=== PATIENT | female | born 1985 | race African-American/Black ===

== ENCOUNTER 2017-04-23 14:10 | Emergency (ER) | payer SELFPAY ==
[2017-04-23 14:16] VITALS: BMI 44.2
[2017-04-23] MEDS ORDERED: ONDANSETRON 4 MG/2 ML VIAL IVPB ONE (16:51)
[2017-04-23] MEDS ORDERED: PANTOPRAZOLE SODIUM 40 MG in SODIUM CHLORIDE 100 ML IVPB ONE (16:51)
[2017-04-23] MEDS ORDERED: SODIUM CHLORIDE 1,000 ML IV STA (16:51)
[2017-04-23] MEDS ORDERED: PANTOPRAZOLE SODIUM 100 ML IVPB ONE (17:02)
[2017-04-23] MEDS ORDERED: ONDANSETRON 4 MG/2 ML VIAL ONE (17:02)
[2017-04-23 18:00] LABS: URINE APPEARANCE CLEAR; URINE BILIRUBIN NEGATIVE (NEGATIVE); URINE BLOOD NEGATIVE (NEGATIVE); URINE COLOR LTYELLOW; URINE GLUCOSE (UA) NEGATIVE (NEGATIVE); URINE KETONE NEGATIVE (NEGATIVE); URINE LEUK ESTERASE NEGATIVE (NEGATIVE); URINE NITRITE NEGATIVE (NEGATIVE); URINE PROTEIN NEGATIVE (NEGATIVE); URINE UROBILINOGEN NEGATIVE mg/dL (0.2-1.0)
[2017-04-23 18:06] LABS: INR 1.15 (0.82-1.09); PROTHROMBIN TIME (PATIENT) 12.7 SEC (9.98-11.88)
--- NOTE | 2017-04-23 18:07 | PDOC ---
History of Present Illness - General Chief Complaint: Pain Stated Complaint: PAIN Time Seen by Provider: 04/23/17 16:40 - History of Present Illness Initial Comments: 04/23/17 18:02 "The patient is a 31 year old female, with no significant past medical history, who presents to the emergency room with 3 days of progressively worsening diffuse abdominal pain. She states that the pain is constant, exacerbated when sitting and standing, and does not radiate to the back or flanks. The patient cannot sleep at night due to the discomfort. She reports some nausea. She notes that she feels some pressure upon urination, but denies dysuria and hematuria. Denies vaginal discharge/bleeding. Denies vomiting, diarrhea, constipation. Denies hx of gallstones, kidney stones. Denies dysuria, hematuria, flank pain. Denies chest pain. Allergies: NKDA, egg PCP: does not remember the name but located at [facility] " Past History - Past Medical History Allergies/Adverse Reactions: Allergies Allergy/AdvReac Type Severity Reaction Status Date / Time egg Allergy Itching Verified 04/23/17 14:16 Home Medications: Ambulatory Orders Dicyclomine HCl [Bentyl -] 20 mg PO BID PRN #14 tablet 04/23/17 Other medical history: NONE - Suicide/Smoking/Psychosocial Hx Smoking History: Current every day smoker Number of Cigarettes Smoked Daily: 3 Information on smoking cessation initiated: Yes 'Breaking Loose' booklet given: 04/23/17 Hx Alcohol Use: Yes (SOCIAL) Drug/Substance Use Hx: No Review of Systems - Review of Systems Comments:: 04/23/17 18:03 "GENERAL/CONSTITUTIONAL: No fever or chills. No weakness. HEAD, EYES, EARS, NOSE AND THROAT: No change in vision. No ear pain or discharge. No sore throat. CARDIOVASCULAR: No chest pain or shortness of breath. RESPIRATORY: No cough, wheezing, or hemoptysis. GASTROINTESTINAL: +diffuse abdominal pain, +nausea. No vomiting, diarrhea or constipation. GENITOURINARY: No dysuria, frequency, or change in urination. MUSCULOSKELETAL: No joint or muscle swelling or pain. No neck or back pain. SKIN: No rash NEUROLOGIC: No headache, vertigo, loss of consciousness, or change in strength/ sensation. ENDOCRINE: No increased thirst. No abnormal weight change. HEMATOLOGIC/LYMPHATIC: No anemia, easy bleeding, or history of blood clots. ALLERGIC/IMMUNOLOGIC: No hives or skin allergy." *Physical Exam - Vital Signs Last Vital Signs Temp Pulse Resp BP Pulse Ox 99.0 F 107 H 20 162/78 97 04/23/17 14:13 04/23/17 14:13 04/23/17 14:13 04/23/17 14:13 04/23/17 14:13 - Physical Exam Comments: 04/23/17 18:03 "GENERAL: Awake, alert, and fully oriented, in no acute distress HEAD: No signs of trauma EYES: PERRLA, EOMI, sclera anicteric, conjunctiva clear ENT: Auricles normal inspection, hearing grossly normal, nares patent, oropharynx clear without exudates. Moist mucosa NECK: Nontender, no stepoffs, Normal ROM, supple, no lymphadenopathy, JVD, or masses LUNGS: Breath sounds equal, clear to auscultation bilaterally. No wheezes, and no crackles HEART: Regular rate and rhythm, normal S1 and S2, no murmurs, rubs or gallops ABDOMEN: +obese, mild diffuse tenderness to palpation. Soft, normoactive bowel sounds. No guarding, no rebound. No masses. BACK: No CVA tenderness. EXTREMITIES: Normal range of motion, no edema. No clubbing or cyanosis. No cords, erythema, or tenderness NEUROLOGICAL: Cranial nerves II through XII intact. 5/5 strength and sensation in all extremities, Normal speech, normal gait SKIN: Warm, Dry, normal turgor, no rashes or lesions noted." ED Treatment Course - LABORATORY CBC & Chemistry Diagram: 04/23/17 20:31 04/23/17 17:30 - RADIOLOGY Radiology Studies Ordered: Category Date Time Status ABDOMEN & PELVIS CT WITH CONTR [CT] Stat CT Scan 04/23/17 16:50 Ordered ABDOMEN US -LIMITED [US] Stat Ultrasound 04/23/17 16:50 Ordered - Medications Given in the ED: ED Medications Discontinued Medications Generic Name Dose Route Start Last Admin Trade Name Freq PRN Reason Stop Dose Admin Pantoprazole Sodium 40 mg/ 100 mls @ 200 mls/hr 04/23/17 16:51 04/23/17 17:36 Sodium Chloride IVPB 04/23/17 17:20 200 mls/hr ONCE ONE Administration Sodium Chloride 1,000 mls @ 1,000 mls/hr 04/23/17 16:51 04/23/17 17:53 Normal Saline - IV 04/23/17 17:50 1,000 mls/hr ASDIR STA Administration Ondansetron HCl 4 mg 04/23/17 16:51 04/23/17 17:36 Zofran Injection IVPB 04/23/17 16:52 4 mg ONCE ONE Administration Medical Decision Making - Medical Decision Making 04/23/17 18:04 31 F with diffuse abdominal pain x 3 days. Vitals stable, no fevers. Etiology unclear at this time as pt endorses pain in all quadrants. However, abdominal exam notable only for mild diffuse tenderness. - Labs - RUQ sono - CTAP 7PM - pt signed out to night team, dispo pending US and CT scan *DC/Admit/Observation/Transfer Diagnosis at time of Disposition: Abdominal pain Qualifiers: Abdominal location: generalized Qualified Code(s): R10.84 - Generalized abdominal pain - Discharge Dispostion Disposition: HOME Condition at time of disposition: Stable - Prescriptions Prescriptions: Dicyclomine HCl [Bentyl -] 20 mg PO BID PRN #14 tablet PRN Reason: Pain - Referrals Referrals: Alfred Pepe MD [Staff Physician] - - Patient Instructions Printed Discharge Instructions: DI for Abdominal Pain-Adult Additional Instructions: Thank you for coming in to the ER today Please take medications as prescribed for pain Please follow up with your primary care physician in 2 -3 days Please follow up with GI You should return to the ER for any new symptoms, increased pain, any other concerns or complaints Print Language: [place] - Post Discharge Activity Forms/Work/School Notes: Back to Work
[2017-04-23 18:09] LABS: ACTIVATED PTT 27.5 SECONDS (26.9-34.4)
[2017-04-23 18:17] LABS: ALBUMIN 3.5 g/dl (3.4-5.0); ALK PHOS 78 U/L (45-117); ANION GAP 9 (8-16); BILIRUBIN,TOTAL 0.4 mg/dL (0.2-1.0); CO2 25 mmol/L (21-32); CREATININE 0.8 mg/dL (0.55-1.02); GLUCOSE,RANDOM 95 mg/dL (74-106); SGPT/ALT 20 U/L (12-78); TOT PROT 6.8 g/dl (6.4-8.2)
[2017-04-23 18:21] LABS: SGOT/AST 14 U/L (15-37)
--- NOTE | 2017-04-23 19:34 | PDOC ---
*Physical Exam - Vital Signs Last Vital Signs Temp Pulse Resp BP Pulse Ox 99.0 F 107 H 20 162/78 100 04/23/17 14:13 04/23/17 14:13 04/23/17 14:13 04/23/17 14:13 04/23/17 17:00 ED Treatment Course - LABORATORY CBC & Chemistry Diagram: 04/23/17 20:31 04/23/17 17:30 - ADDITIONAL ORDERS Additional order review: Laboratory Results 04/23/17 04/23/17 04/23/17 17:53 17:30 17:30 PT with INR INR PTT (Actin FS) Sodium 138 Potassium 4.3 Chloride 104 Carbon Dioxide 25 Anion Gap 9 BUN 10 Creatinine 0.8 Creat Clearance w eGFR > 60 Random Glucose 95 Lactic Acid 1.6 Calcium 9.0 Total Bilirubin 0.4 AST 14 L ALT 20 Alkaline Phosphatase 78 Total Protein 6.8 Albumin 3.5 Lipase 112 Beta HCG, Quant < 1.0 Urine Color Ltyellow Urine Appearance Clear Urine pH 5.0 Urine Protein Negative Urine Glucose (UA) Negative Urine Ketones Negative Urine Blood Negative Urine Nitrite Negative Urine Bilirubin Negative Urine Urobilinogen Negative Blood Type Antibody Screen 04/23/17 04/23/17 17:30 15:34 PT with INR 12.70 H INR 1.15 H PTT (Actin FS) 27.5 Sodium Potassium Chloride Carbon Dioxide Anion Gap BUN Creatinine Creat Clearance w eGFR Random Glucose Lactic Acid Calcium Total Bilirubin AST ALT Alkaline Phosphatase Total Protein Albumin Lipase Beta HCG, Quant Urine Color Urine Appearance Urine pH Urine Protein Urine Glucose (UA) Urine Ketones Urine Blood Urine Nitrite Urine Bilirubin Urine Urobilinogen Blood Type B POSITIVE Antibody Screen Negative - Medications Given in the ED: ED Medications Discontinued Medications Generic Name Dose Route Start Last Admin Trade Name Freq PRN Reason Stop Dose Admin Pantoprazole Sodium 40 mg/ 100 mls @ 200 mls/hr 04/23/17 16:51 04/23/17 17:36 Sodium Chloride IVPB 04/23/17 17:20 200 mls/hr ONCE ONE Administration Sodium Chloride 1,000 mls @ 1,000 mls/hr 04/23/17 16:51 04/23/17 17:53 Normal Saline - IV 04/23/17 17:50 1,000 mls/hr ASDIR STA Administration Ondansetron HCl 4 mg 04/23/17 16:51 04/23/17 17:36 Zofran Injection IVPB 04/23/17 16:52 4 mg ONCE ONE Administration Medical Decision Making - Medical Decision Making 04/23/17 19:32 I received this patient on sign out Briefly, she is an otherwise healthy 31 yo F who presents to the ER with a complaint of abdominal pain Pain is diffuse through out her abdomen No fevers Laboratory Tests 04/23/17 04/23/17 17:30 17:53 BUN 10 Creatinine 0.8 Urine Blood Negative Urine Nitrite Negative 04/23/17 20:37 Us demonstrates: hepatomegaly, slightly coarse ecotexture suggestive of mild fatty infiltration. No gallstones 04/23/17 20:41 04/23/17 22:14 CT negative Will give pain medications Will discharge to home *DC/Admit/Observation/Transfer Diagnosis at time of Disposition: Abdominal pain Qualifiers: Abdominal location: generalized Qualified Code(s): R10.84 - Generalized abdominal pain - Discharge Dispostion Disposition: HOME Condition at time of disposition: Stable Admit: No - Prescriptions Prescriptions: Dicyclomine HCl [Bentyl -] 20 mg PO BID PRN #14 tablet PRN Reason: Pain - Referrals Referrals: Alfred Pepe MD [Staff Physician] - - Patient Instructions Printed Discharge Instructions: DI for Abdominal Pain-Adult Additional Instructions: Thank you for coming in to the ER today Please take medications as prescribed for pain Please follow up with your primary care physician in 2 -3 days Please follow up with GI You should return to the ER for any new symptoms, increased pain, any other concerns or complaints - Post Discharge Activity Forms/Work/School Notes: Back to Work
[2017-04-23 20:44] LABS: BASOPHIL 0.6 % (0-2.0); EOSINOPHIL 0.7 % (0-4.5); MEAN CELL VOLUME 87.7 fl (80-96); MEAN PLT VOLUME 8.7 fl (7.5-11.1); NEUTROPHILS 76.7 % (42.8-82.8); PLATELET COUNT 274 K/MM3 (134-434); RDW 15.6 % (11.6-15.6); WHITE BLOOD COUNT 15.3 K/mm3 (4.0-10.0)
[2017-04-23] MEDS ORDERED: DICYCLOMINE HCL 20 MG TABLET PO ONE (22:14)
[2017-04-23] MEDS ORDERED: IBUPROFEN 800 MG/8 ML IJ IVPB ONE ×2 (22:14→22:18)
[2017-04-23] MEDS ORDERED: DICYCLOMINE HCL 10 MG CAPSULE ONE (22:18)
[2017-04-23 23:09] VITALS: BP 134/75; PULSE 81; TEMP 98.1
== END 2017-04-23 23:10 | disposition home or self-care (01) ==
LOC: JER 14:10
PROC: 3E033GC Introduction of Other Therapeutic Substance into Peripheral Vein, Percutaneous Approach (ICD-10-PCS; principal; 2017-04-23)
DX: R10.84 Generalized abdominal pain (principal); F17.210 Nicotine dependence, cigarettes, uncomplicated
CPT/HCPCS: 36415; 74177-TC; 76705-TC; 80053; 81003; 83605; 83690; 84702; 85025; 85610; 85730; 86850; 86900; 86901; 99283-25; Q9967